=== PATIENT | female | born 1940 | race African-American/Black ===

== ENCOUNTER → 2016-12-21 | Outpatient (CLI) | payer MEDICARE, BC ==
[~2016-12-21] MED LIST: AMLO5TAB4 PO; B2/V1TAB PO; BRIM10DR2 OP; CALC-1035 PO; CALC600T12 PO; CHOL100046 PO; LISI10TA5 PO; METF500T4 PO; MULT1TAB7 PO; PRAV10TA35 PO; TRAV2.5D BOTHEYE
== END | disposition home or self-care (01) ==
LOC: RAD 09:06
PROVIDERS: ATTEND Internal Medicine
DX: Z01.818 Encounter for other preprocedural examination (principal); K63.5 Polyp of colon
CPT/HCPCS: 71020